=== PATIENT | male | born 1970 | race Caucasian/White ===

== ENCOUNTER 2023-04-05 17:52 | Emergency (ER) | payer OTHER, SELFPAY ==
[2023-04-05 17:59] VITALS: BP 153/87; PULSE 78; RESP 14; TEMP 36.3; O2SAT 100; BMI 29.7
--- NOTE | 2023-04-05 18:21 | ED.ABDPAIN ---
HPI - Abdominal Pain General Time Seen by Provider: 18:21 <Alicia Suggs Last Filed: 04/05/23 19:49> Date Seen: 04/05/23 <Alicia Zurita Filed: 04/05/23 19:49> Chief Complaint: Abdominal Pain <Alicia Suggs Filed: 04/05/23 19:49> Stated Complaint: stomach pain <Alicia Suggs Last Filed: 04/05/23 19:49> Time Seen by Provider: 04/05/23 17:54 <Alicia Suggs Last Filed: 04/05/23 19:49> Source: patient <Alicia Zurita Filed: 04/05/23 19:49> Mode of arrival: ambulatory <Alicia Zurita Filed: 04/05/23 19:49> Limitations: no limitations <Alicia Zurita Filed: 04/05/23 19:49> History of Present Illness HPI narrative: Patient reports ongoing epigastric pain since August, which has significantly worsened with the past couple of days with associated nausea. Patient has a history of Floyd's esophagus and hiatal hernia which is being followed closely and he is on Prevacid daily. Patient describes the pain as a squeezing sensation and notes that it is often accompanied by heartburn. He tried taking Tylenol and apple cider vinegar with little to no relief. Rates his pain at 8/10 and it is normally for 4/10. Patient drinks 8 glasses of the crown a week. Patient has the occasional cigar. He is a former smoker, quit approximately 20 years ago. The patient had a stress test back in 2013 which was unremarkable and they attributed his cardiac events to anxiety. He is medicated on hydroxyzine prn. Denies any fevers, chills, unexpected weight loss, chest pain, palpitations, emesis, diarrhea, constipation, hematuria, or hematuria she has are any other complaints at this time. No previous abdominal surgeries. <Alicia Zurita Filed: 04/05/23 19:49> Related Data Home Medications: Home Medications Medication Instructions Recorded Confirmed hydroxyzine HCl 25 mg tablet 25 - 50 mg PO Q6H PRN anxiety 04/05/23 04/05/23 lansoprazole 30 mg capsule,delayed 30 mg PO DAILY 04/05/23 04/05/23 release pantoprazole 40 mg tablet,delayed 40 mg PO DAILY 04/05/23 04/05/23 release testosterone 1.62 % (40.5 mg/2.5 transdermal 04/05/23 gram) transdermal gel packet <Alicia BillShrink Filed: 04/05/23 19:49> Allergies/Adverse Reactions: Allergies Allergy/AdvReac Type Severity Reaction Status Date / Time No Known Drug Allergies Allergy Verified 04/05/23 17:58 <Alicia Filed: 04/05/23 19:49> Review of Systems Status of ROS Reports: 10 or more systems reviewed and unremarkable except as noted in History and below <Alicia BillShrink Filed: 04/05/23 19:49> Const Denies: fever, chills, change in weight, fatigue or night sweats <Alicia Filed: 04/05/23 19:49> ENMT Denies: throat pain, neck pain, throat swelling or difficulty swallowing <Alicia Filed: 04/05/23 19:49> Cardio Denies: chest pain, palpitations, edema, swelling of feet/ankles, lightheadedness or shortness of breath with exertion <Alicia BillShrink Filed: 04/05/23 19:49> Resp Denies: shortness of breath <Alicia BillShrink Filed: 04/05/23 19:49> GI Reports: abdominal pain, nausea and heartburn; Denies: diarrhea, constipation, bloating, difficulty swallowing or change in bowel habits <Alicia BillShrink Filed: 04/05/23 19:49> Denies: painful urination, urinary frequency, urinary urgency, blood in urine, difficulty urinating or decreased urine ouput <Alicia BillShrink Filed: 04/05/23 19:49> Musculo Denies: back pain, neck pain or extremity pain <Alicia BillShrink Filed: 04/05/23 19:49> Integ/Breast Denies: rash <Alicia BillShrink Filed: 04/05/23 19:49> Neuro Denies: headache <Alicia BillShrink Filed: 04/05/23 19:49> Psych Reports: anxiety <Alicia BillShrink Filed: 04/05/23 19:49> Endo Denies: fatigue <Alicia Graham - Last Filed: 04/05/23 19:49> Allergy/Immuno Denies: throat swelling <Alicia Graham - Last Filed: 04/05/23 19:49> PFSH PFSH Social History: Social History Smoking Status: Never smoker How often do you have a drink containing alcohol: never AUDIT-C Alcohol total score: 0 Non-prescribed substance use: denies use <Alicia Graham - Last Filed: 04/05/23 19:49> Exam Const: Vital Signs, click to edit/add: Vital Signs - 24 hr 04/05/23 17:59 04/05/23 20:06 Temperature 97.4 F L 97.4 F L Pulse Rate [Pulse Oximeter] 78 78 Respiratory Rate 14 14 Blood Pressure [Ri ght Upper Arm] 153/87 H 153/87 H Pulse Oximetry 100 Oxygen Delivery Me thod Room Air <Alicia Graham Last Filed: 04/05/23 19:49> Vital Signs, click to edit/add: Vital Signs - 24 hr 04/05/23 17:59 04/05/23 20:06 Temperature 97.4 F L 97.4 F L Pulse Rate [Pulse Oximeter] 78 78 Respiratory Rate 14 14 Blood Pressure [Ri ght Upper Arm] 153/87 H 153/87 H Pulse Oximetry 100 Oxygen Delivery Me thod Room Air <Melanie Frost MD - Last Filed: 04/05/23 20:07> Documenting provider has reviewed patient's vital signs: yes <Alicia Graham - Last Filed: 04/05/23 19:49> Common normals: no apparent distress, oriented x3, no limitations, alert and well nourished <Alicia Graham Last Filed: 04/05/23 19:49> Nutritional appearance: overweight <Alicia Last Filed: 04/05/23 19:49> HENMT: Common normals: normocephalic, head/scalp atraumatic, hearing grossly normal bilaterally, external ears normal, external nose normal, nasal mucous membranes and turbinates normal, moist oral mucous membranes and oropharynx normal <Alicia Graham Last Filed: 04/05/23 19:49> Head and scalp: normocephalic and atraumatic <[facility] Filed: 04/05/23 19:49> Nose: external nose normal and nasal mucous membranes and turbinates normal <[facility] Filed: 04/05/23 19:49> External ear: external ears normal <[facility] Filed: 04/05/23 19:49> Eye: Common normals: PERRL, EOMs intact bilaterally, conjunctivae normal and no scleral icterus <[facility] Filed: 04/05/23 19:49> Conjunctiva: conjunctiva(e) normal <[facility] Filed: 04/05/23 19:49> Pupil: PERRL <[facility] Filed: 04/05/23 19:49> Neck & C-Spine: Common normals: full ROM, no lymphadenopathy, supple and no carotid bruits <[facility] Filed: 04/05/23 19:49> Lymph: Lymphatic: no lymphadenopathy noted <[facility] Filed: 04/05/23 19:49> Chest: Common normals: inspection of chest normal and palpation of chest normal <[facility] Filed: 04/05/23 19:49> Resp: Common normals: normal respiratory effort, no retractions, no use of accessory muscles, clear to auscultation bilaterally and percussion normal <[facility] Filed: 04/05/23 19:49> Auscultation: clear to auscultation bilaterally <[facility] Filed: 04/05/23 19:49> Percussion: percussion normal <[facility] Filed: 04/05/23 19:49> Cardio: Common normals: regular rate, regular rhythm, S1 normal heart sound, S2 normal heart sound, no gallops, no clicks, no murmurs, no rub and peripheral pulses 2+ throughout <[facility] Filed: 04/05/23 19:49> Rate: regular rate <[facility] Filed: 04/05/23 19:49> Rhythm: regular rhythm <[facility] Filed: 04/05/23 19:49> Heart sounds: S1 normal and S2 normal <Alicia - Last Filed: 04/05/23 19:49> Peripheral pulses: pulses 2+ throughout <Alicia - Last Filed: 04/05/23 19:49> GI: Common normals: Normal to inspection, nondistended, normoactive bowel sounds present, soft to palpation, non-tender and no hepatosplenomegaly <Alicia - Last Filed: 04/05/23 19:49> Palpation: soft and no hepatosplenomegaly <Alicia - Last Filed: 04/05/23 19:49> : Common normals: no CVA tenderness <Alicia - Last Filed: 04/05/23 19:49> Bladder/kidney exam: no CVA tenderness <Alicia - Filed: 04/05/23 19:49> Back & Pelvis: Common normals: no CVA tenderness <Alicia - Filed: 04/05/23 19:49> Extremity: Common normals: normal to inspection, full ROM, normal capillary refill and no clubbing, cyanosis or edema <Alicia - Last Filed: 04/05/23 19:49> Neuro: Common normals: oriented x3 <Alicia Filed: 04/05/23 19:49> Sensorium/orientation: alert <Alicia Filed: 04/05/23 19:49> Psych: Common normals: mental status grossly normal, thought process normal, cooperative, affect normal and speech normal <Alicia - Last Filed: 04/05/23 19:49> Speech: normal speech <Alicia - Last Filed: 04/05/23 19:49> Thought process: normal thought process <Alicia - Last Filed: 04/05/23 19:49> Course Course ED Course: Spent some time initially talking to this patient and his . Given that he has had this pain since August, possibly before, do feel that there may be some limitations to expect definitive diagnosis tonight. States he believes he has had a couple of ultrasounds, thinks 1 of them might have been of his gallbladder, does know that he had fatty liver diagnosed. In August he did have a CT and he states it went from his chest through his abdomen and pelvis. This pain is what led to the initial EGD over the summer, I believe he may have said September or October for the EGD, where Dr. Sanchez found the Floyd's esophagus. He continues to have heartburn, has been having increasing epigastric pain. They started new PPI today as the others were not helping. Discussed imaging with CT comes with radiation exposure and needs to be taken into consideration that he just had CAP CT this past August. At this time, would recommend that we look at labs. If these are all reassuring, recommend talking to Dr. Sanchez/ Dr. Sanchez tomorrow; could consider doing further studies for reflux like potentially Stroud, further look at gallbladder possibly like a HIDA scan if felt clinically indicated. His abdominal exam is very benign and I am not concerned about emergent surgical abdomen at this time. I have supervised Alicia STONE as well as personally conducted history and physical on this patient. <Melanie Frost MD - Last Filed: 04/05/23 20:07> Reevaluation(s) Time of Reevaluation #1: 19:58 <Melanie Frost MD - Last Filed: 04/05/23 20:07> Reevaluation #1: Have reviewed with patient that his labs are completely normal. They were wondering what to perhaps do about his symptoms. We did start to discuss reflux, he does have his head of his bed elevated some. He is not following strict guidelines of attempting to be NPO at least for few hours before going to bed. His notes he had a bad night last night base he had a snack and some pretzels about half an hour before bed. He may try some Tylenol sporadically, he could consider doing some Tylenol to see if it helps but again would still advise attempting to keep his stomach contents down in relation to bedtime. Also, did review maybe avoiding NSAIDs for him at this time. They will need to follow up in clinic tomorrow. <Melanie Frost MD - Last Filed: 04/05/23 20:07> Vital Signs Vital signs: Initial Vital Signs Temperature 97.4 F L 04/05/23 17:59 Temperature Source Temporal Artery Scan 04/05/23 17:59 Pulse Rate 78 04/05/23 17:59 Pulse Rhythm Regular 04/05/23 17:59 Respiratory Rate 14 04/05/23 17:59 Blood Pressure 153/87 H 04/05/23 17:59 Blood Pressure Mean 109 H 04/05/23 17:59 Blood Pressure Position Sitting 04/05/23 17:59 Pulse Oximetry 100 04/05/23 17:59 Oxygen Delivery Method Room Air 04/05/23 17:59 Vital Signs Temperature 97.4 F L 04/05/23 17:59 Pulse Rate 78 04/05/23 17:59 Respiratory Rate 14 04/05/23 17:59 Blood Pressure 153/87 H 04/05/23 17:59 Pulse Oximetry 100 04/05/23 17:59 Oxygen Delivery Method Room Air 04/05/23 17:59 Temperature 97.4 F L 04/05/23 20:06 Pulse Rate 78 04/05/23 20:06 Respiratory Rate 14 04/05/23 20:06 Blood Pressure 153/87 H 04/05/23 20:06 Pulse Oximetry 100 04/05/23 17:59 Oxygen Delivery Method Room Air 04/05/23 17:59 <Alicia Graham - Last Filed: 04/05/23 19:49> Initial Vital Signs Temperature 97.4 F L 04/05/23 17:59 Temperature Source Temporal Artery Scan 04/05/23 17:59 Pulse Rate 78 04/05/23 17:59 Pulse Rhythm Regular 04/05/23 17:59 Respiratory Rate 14 04/05/23 17:59 Blood Pressure 153/87 H 04/05/23 17:59 Blood Pressure Mean 109 H 04/05/23 17:59 Blood Pressure Position Sitting 04/05/23 17:59 Pulse Oximetry 100 04/05/23 17:59 Oxygen Delivery Method Room Air 04/05/23 17:59 Vital Signs Temperature 97.4 F L 04/05/23 17:59 Pulse Rate 78 04/05/23 17:59 Respiratory Rate 14 04/05/23 17:59 Blood Pressure 153/87 H 04/05/23 17:59 Pulse Oximetry 100 04/05/23 17:59 Oxygen Delivery Method Room Air 04/05/23 17:59 Temperature 97.4 F L 04/05/23 20:06 Pulse Rate 78 04/05/23 20:06 Respiratory Rate 14 04/05/23 20:06 Blood Pressure 153/87 H 04/05/23 20:06 Pulse Oximetry 100 04/05/23 17:59 Oxygen Delivery Method Room Air 04/05/23 17:59 <Melanie rFost MD - Last Filed: 04/05/23 20:07> MDM - Abdominal Pain MDM Narrative Medical decision making narrative: Patient is a 52-year-old male with a pertinent past medical history of Floyd's esophagus and a hiatal hernia presenting with epigastric abdominal pain since August, which has since progressively worsened within the past couple of days with associated nausea. Patient describes his pain as a squeezing sensation which is accompanied with heartburn. He takes Prevacid daily with his last EGD in October. Patient had a CT scan back in August for similar symptoms and it was unremarkable at that time. He drinks 8 glasses of [place] a week. He smokes the occasional cigar, but was a former smoker approximately 20 years ago. On exam, patient is afebrile, well-nourished, and anxious appearing. He is mildly hypertensive, but vital signs are otherwise stable. Abdomen was soft, non distended, nontender on exam. Patient denies any chest pain and I do not believe his symptoms require necessary cardiac workup. Workup will include CBC, CMP, lipase, CRP to rule out any acute infectious causes. Discussed in length how the benefits do not outweigh the risks for additional CT radiation, unless otherwise necessary based on lab results. Differential diagnosis includes, but is not limited to, cholecystitis, pancreatitis, flare of his Floyd's, GERD, PUD, gastritis. CBC, CMP, CRP, and lipase are all within normal limits and therefore is there is low suspicion for any infectious causes of your symptoms today. Glucose, nonfasting, is mildly elevated at 136. It is likely the symptoms are result of the Floyd's esophagus and I recommended further testing and follow-up with <Alicia Graham - Last Filed: 04/05/23 19:49> Differential Diagnosis Differential diagnosis: Likely abdominal pain and pancreatitis <Alicia Suggs Last Filed: 04/05/23 19:49> Medical Records Attestation: I reviewed the patient's medical records. <Alicia Graham - Last Filed: 04/05/23 19:49> Lab Data Attestation: I reviewed the patient's lab results. <Alicia Graham - Last Filed: 04/05/23 19:49> Labs: Lab Results 04/05/23 Range/Units 19:05 WBC 9.71 (4.50-11.00) K/uL RBC 5.38 (4.30-5.90) m/uL Hgb 15.9 (13.5-17.5) gm/dL Hct 47.6 (37.0-53.0) % MCV 89 (80-100) fL MCH 30 (26-34) pg MCHC 33 (32-36) gm/dL RDW Coeff of Rl 12.3 (11.5-15.5) % Plt Count 195 (140-440) K/uL Neut % (Auto) 65.2 (42.0-72.0) % Lymph % (Auto) 26.4 (20-44) % [place] % (Auto) 6.3 (0.0-11.0) % Eos % (Auto) 1.4 (0.0-7.0) % Baso % (Auto) 0.5 (0.0-3.0) % Neut # (Auto) 6.33 (1.7-7.0) K/uL Lymph # (Auto) 2.56 (0.90-2.90) K/uL [place] # (Auto) 0.60 (0.00-0.90) K/UL Eos # (Auto) 0.14 (0.00-0.50) K/uL Baso # (Auto) 0.05 (0.00-0.30) K/uL Abs Immat Gran (auto) 0.02 (0.00-0.30) K/uL Imm/Tot Granulo (auto) 0.2 % Sodium 138 (135-149) mmol/L Potassium 3.7 (3.6-5.1) mmol/L Chloride 106 (96-114) mmol/L Carbon Dioxide 23 (20-32) mmol/L Anion Gap 9 (7-15) mEq/L BUN 19 (7-30) mg/dL Creatinine 1.4 (0.5-1.5) mg/dL Estimated Creat Clear 70.55 Estimated GFR 61 ml/min Glucose 136 H (60-115) mg/dL Calcium 8.6 (8.4-10.6) mg/dL Total Bilirubin 0.3 (0.1-1.5) mg/dL AST 33 (12-35) U/L ALT 39 (4-50) U/L Alkaline Phosphatase 76 (40-150) U/L C-Reactive Protein 0.6 (0.5-1.0) mg/dL Total Protein 7.3 (6.0-8.3) g/dL Albumin 4.6 (3.3-5.0) g/dL Lipase 238 (23-300) U/L <Alicia Graham - Last Filed: 04/05/23 19:49> Lab Results 04/05/23 Range/Units 19:05 WBC 9.71 (4.50-11.00) K/uL RBC 5.38 (4.30-5.90) m/uL Hgb 15.9 (13.5-17.5) gm/dL Hct 47.6 (37.0-53.0) % MCV 89 (80-100) fL MCH 30 (26-34) pg MCHC 33 (32-36) gm/dL RDW Coeff of Rl 12.3 (11.5-15.5) % Plt Count 195 (140-440) K/uL Neut % (Auto) 65.2 (42.0-72.0) % Lymph % (Auto) 26.4 (20-44) % [place] % (Auto) 6.3 (0.0-11.0) % Eos % (Auto) 1.4 (0.0-7.0) % Baso % (Auto) 0.5 (0.0-3.0) % Neut # (Auto) 6.33 (1.7-7.0) K/uL Lymph # (Auto) 2.56 (0.90-2.90) K/uL [place] # (Auto) 0.60 (0.00-0.90) K/UL Eos # (Auto) 0.14 (0.00-0.50) K/uL Baso # (Auto) 0.05 (0.00-0.30) K/uL Abs Immat Gran (auto) 0.02 (0.00-0.30) K/uL Imm/Tot Granulo (auto) 0.2 % Sodium 138 (135-149) mmol/L Potassium 3.7 (3.6-5.1) mmol/L Chloride 106 (96-114) mmol/L Carbon Dioxide 23 (20-32) mmol/L Anion Gap 9 (7-15) mEq/L BUN 19 (7-30) mg/dL Creatinine 1.4 (0.5-1.5) mg/dL Estimated Creat Clear 70.55 Estimated GFR 61 ml/min Glucose 136 H (60-115) mg/dL Calcium 8.6 (8.4-10.6) mg/dL Total Bilirubin 0.3 (0.1-1.5) mg/dL AST 33 (12-35) U/L ALT 39 (4-50) U/L Alkaline Phosphatase 76 (40-150) U/L C-Reactive Protein 0.6 (0.5-1.0) mg/dL Total Protein 7.3 (6.0-8.3) g/dL Albumin 4.6 (3.3-5.0) g/dL Lipase 238 (23-300) U/L <Melanie Frost MD - Last Filed: 04/05/23 20:07> Discharge Plan Discharge Clinical Impression: Floyd's esophagus, Abdominal pain <Alicia Suggs Last Filed: 04/05/23 19:49> Patient Disposition: Home, Self-Care <Alicia Suggs Last Filed: 04/05/23 19:49> Condition: Stable <Alicia Graham - Last Filed: 04/05/23 19:49> Instructions: Floyd Esophagus (ED), Abdominal Pain (ED) <Alicia Suggs Last Filed: 04/05/23 19:49> Additional Instructions: Need to contact clinic tomorrow and speak with either Dr. Sanchez or Dr. Sanchez. Would ask whether or not they might recommend next steps in further evaluation since the proton pump inhibitors are not helping your symptoms. There is a test called a Stroud study, also ask if your gallbladder has had appropriate ultrasound done. If there are any thoughts that this could be dysfunctional gallbladder, further testing with a HIDA scan could be considered. I ultimately defer to your care providers in the clinic. Continue on the Prevacid as they have just started you on. Need to try to refrain from eating or drinking within a few hours of bedtime, see if that helps. <Alicia Suggs Last Filed: 04/05/23 19:49> Activity Level: Activity as Tolerated <Alicia Graham - Last Filed: 04/05/23 19:49> Activity as Tolerated <Melanie Frots MD - Last Filed: 04/05/23 20:07> Prescriptions: No Action pantoprazole 40 mg tablet,delayed release (DR/EC) 40 mg PO DAILY lansoprazole 30 mg capsule,delayed release(DR/EC) 30 mg PO DAILY hydroxyzine HCl 25 mg tablet 25 - 50 mg PO Q6H PRN (Reason: anxiety) testosterone 1.62 % (40.5 mg/2.5 gram) gel in packet transdermal <Alicia Graham - Last Filed: 04/05/23 19:49> Follow Up/Referrals: Jakob Sanchez MD [Primary Care Provider] - <Alicia Graham - Last Filed: 04/05/23 19:49> Stand Alone Forms: My[facility] Info Instructions <Alicia Graham - Last Filed: 04/05/23 19:49>
[2023-04-05 19:12] LABS: Basophils Absolute Auto 0.05 K/uL (0.00-0.30); Basophils Percent Auto 0.5 % (0.0-3.0); Eosinophils Absolute Auto 0.14 K/uL (0.00-0.50); Eosinophils Percent Auto 1.4 % (0.0-7.0); Hematocrit 47.6 % (37.0-53.0); Hemoglobin* 15.9 gm/dL (13.5-17.5); Immature Granulocytes Abs Auto 0.02 K/uL (0.00-0.30); Immature Granulocytes Pct Auto 0.2 %; Lymphocytes Absolute Auto 2.56 K/uL (0.90-2.90); Lymphocytes Percent Auto 26.4 % (20-44); Mean Corpuscular HGB Conc 33 gm/dL (32-36); Mean Corpuscular Hemoglobin 30 pg (26-34); Mean Corpuscular Volume 89 fL (80-100); Monocytes Percent Auto 6.3 % (0.0-11.0); Neutrophils Absolute Auto 6.33 K/uL (1.7-7.0); Neutrophils Percent Auto 65.2 % (42.0-72.0); Platelet Count* 195 K/uL (140-440); RDW Coefficient of Variation % 12.3 % (11.5-15.5); Red Blood Count 5.38 m/uL (4.30-5.90); White Blood Count* 9.71 K/uL (4.50-11.00)
[2023-04-05 19:20] LABS: Slide Review Reflex No
[2023-04-05 19:34] LABS: Albumin* 4.6 g/dL (3.3-5.0); Chloride* 106 mmol/L (96-114); Sodium* 138 mmol/L (135-149)
[2023-04-05 19:35] LABS: Potassium* 3.7 mmol/L (3.6-5.1)
[2023-04-05 19:37] LABS: Alkaline Phosphatase* 76 U/L (40-150); Anion Gap 9 mEq/L (7-15); Aspartate Amino Transferase* 33 U/L (12-35); Bilirubin Total* 0.3 mg/dL (0.1-1.5); Carbon Dioxide* 23 mmol/L (20-32); Creatinine* 1.4 mg/dL (0.5-1.5); Est. Creatinine Clearance* 70.55; Estimated Glomerular Filt Rate 61 ml/min; Lipase* 238 U/L (23-300); Total Protein* 7.3 g/dL (6.0-8.3)
[2023-04-05 19:38] LABS: Alanine Aminotransferase* 39 U/L (4-50); Blood Urea Nitrogen* 19 mg/dL (7-30); Calcium* 8.6 mg/dL (8.4-10.6); Glucose* 136 mg/dL (60-115)
[2023-04-05 19:40] LABS: C Reactive Protein* 0.6 mg/dL (0.5-1.0)
[2023-04-05 20:06] VITALS: BP 153/87; PULSE 78; RESP 14; TEMP 36.3
== END 2023-04-05 20:09 | disposition home or self-care (01) ==
PROVIDERS: Emergency Provider Family Medicine; PCP Surgery
DX: K22.70 Barrett's esophagus without dysplasia (principal); R10.9 Unspecified abdominal pain
CPT/HCPCS: 36415; 80053; 83690; 85025; 86140; 99283